=== PATIENT | male | born 1960 | race Caucasian/White ===

== ENCOUNTER 2017-09-23 10:29 | Inpatient (IN) | payer OTHER ==
[~2017-09-23] VITALS: Ht 182.9 cm; Wt 66.0 kg
[2017-09-23 12:09] LABS: BASOPHIL % 0.1 % (0-2); PLATELET COUNT 312 x10^3mcL (130-400); RED CELL DISTRIBUTION WIDTH 13.1 % (11.5-14.5)
[2017-09-23 12:19] LABS: CALCIUM 8.7 mg/dL (8.5-10.1); CARBON DIOXIDE 29.2 mmol/L (21-32); CHLORIDE SERUM 95 mmol/L (98-107); GFR1 > 60 mL/min; GLUCOSE SERUM 112 mg/dL (74-106); POTASSIUM SERUM 3.8 mmol/L (3.5-5.1); SODIUM SERUM 132 mmol/L (136-145)
[2017-09-23 12:23] LABS: ALKALINE PHOSPHATASE 68 U/L (46-116); ALT/SGPT 16 U/L (16-63); AST/SGOT 20 U/L (15-37); BILIRUBIN TOTAL 0.76 mg/dL (0.20-1.00); LIPASE 145 IU/L (73-393); TOTAL PROTEIN, SERUM 7.9 g/dL (6.4-8.2)
[2017-09-23 12:25] LABS: ALBUMIN 2.4 g/dL (3.4-5.0)
[2017-09-23 14:06] VITALS: BP 117/75
[2017-09-23 15:05] VITALS: BP 117/75
[2017-09-23 16:12] LABS: T3 TOTAL 0.51 ng/mL
[2017-09-23 17:27] VITALS: BP 112/70
[2017-09-23 17:48] LABS: FREE T4 1.37 ng/dL (0.76-1.46); FREE THYROXINE INDEX 2.8 ug/dL (1.4-4.5); T4(THYROXINE) 7.2 ug/dL (4.7-13.3)
[2017-09-23 18:15] LABS: MAGNESIUM 2.1 mg/dL (1.8-2.4); PHOSPHOROUS 3.8 mg/dL (2.5-4.9)
[2017-09-23 18:19] LABS: CHOLESTEROL/HDL RATIO 3.8
[2017-09-23 21:21] VITALS: BP 129/74
[2017-09-24 05:26] VITALS: BP 117/68
[2017-09-24 08:11] VITALS: BP 119/73
[2017-09-24 08:19] LABS: BASOPHIL % 0.4 % (0-2); PLATELET COUNT 284 x10^3mcL (130-400); RED CELL DISTRIBUTION WIDTH 12.9 % (11.5-14.5)
[2017-09-24 08:35] LABS: CALCIUM 8.1 mg/dL (8.5-10.1); CARBON DIOXIDE 23.6 mmol/L (21-32); CHLORIDE SERUM 100 mmol/L (98-107); CREATININE SERUM 0.8 mg/dL (0.7-1.3); GFR1 > 60 mL/min; GLUCOSE SERUM 85 mg/dL (74-106); MAGNESIUM 2.1 mg/dL (1.8-2.4); PHOSPHOROUS 3.7 mg/dL (2.5-4.9); POTASSIUM SERUM 3.8 mmol/L (3.5-5.1); SODIUM SERUM 132 mmol/L (136-145)
[2017-09-24 09:10] VITALS: Ht 182.9 cm; Wt 66.0 kg
[2017-09-24 11:35] LABS: microscopic required? NO
[2017-09-24 11:48] LABS: UA SPECIFIC GRAVITY 1.015 (1.005-1.035); urine erythrocyte NEGATIVE (NEGATIVE)
[2017-09-24 12:17] VITALS: BP 128/71
[2017-09-24 16:57] VITALS: BP 122/70
[2017-09-24 21:47] VITALS: BP 121/63
[2017-09-24 23:10] LABS: AMPHETAMINE QUAL UR NONE DETECTED (NEG <=1000)
[2017-09-25 07:18] LABS: BASOPHIL % 0.5 % (0-2); PLATELET COUNT 313 x10^3mcL (130-400); RED CELL DISTRIBUTION WIDTH 13.1 % (11.5-14.5)
[2017-09-25 07:30] LABS: CALCIUM 8.3 mg/dL (8.5-10.1); CARBON DIOXIDE 24.5 mmol/L (21-32); CHLORIDE SERUM 101 mmol/L (98-107); CREATININE SERUM 0.8 mg/dL (0.7-1.3); GFR1 > 60 mL/min; GLUCOSE SERUM 93 mg/dL (74-106); MAGNESIUM 2.2 mg/dL (1.8-2.4); PHOSPHOROUS 3.3 mg/dL (2.5-4.9); POTASSIUM SERUM 4.3 mmol/L (3.5-5.1); SODIUM SERUM 133 mmol/L (136-145)
[2017-09-25 11:06] VITALS: BP 127/76
[2017-09-25 14:11] VITALS: BP 144/63
[2017-09-25 18:33] VITALS: BP 140/71
[2017-09-25 22:00] VITALS: BP 120/67
[2017-09-26 04:09] LABS: BASOPHIL % 0.5 % (0-2); PLATELET COUNT 318 x10^3mcL (130-400); RED CELL DISTRIBUTION WIDTH 12.8 % (11.5-14.5)
[2017-09-26 04:31] LABS: CALCIUM 7.9 mg/dL (8.5-10.1); CARBON DIOXIDE 21.2 mmol/L (21-32); CHLORIDE SERUM 100 mmol/L (98-107); CREATININE SERUM 0.7 mg/dL (0.7-1.3); GFR1 > 60 mL/min; GLUCOSE SERUM 102 mg/dL (74-106); POTASSIUM SERUM 3.8 mmol/L (3.5-5.1); SODIUM SERUM 132 mmol/L (136-145)
[2017-09-26 06:03] VITALS: BP 138/69
[2017-09-26 08:55] VITALS: BP 128/83
[2017-09-26 12:15] VITALS: BP 117/73
[2017-09-26] MEDS ORDERED: XARELTO10 M1 PO (16:41)
[2017-09-26] MEDS ORDERED: GOOD SENSE OMEP20 MG PO (16:44)
[2017-09-26] MEDS ORDERED: DAYTIME-COLD N1 EACH PO (17:02)
[2017-09-26] MEDS ORDERED: COUGH & CHEST177 ML PO (17:06)
[2017-09-26 17:19] VITALS: BP 117/73
== END 2017-09-26 17:52 | disposition home or self-care (01) | DRG 438 ==
LOC: ED 10:29 → DU 12:00
PROVIDERS: Emergency Medicine; Family Medicine; Family Medicine Sports Medicine; Internal Medicine
PROC: 0FBD8ZX Excision of Pancreatic Duct, Via Natural or Artificial Opening Endoscopic, Diagnostic (ICD-10-PCS; principal; 2017-09-25 07:30)
PROC: 0F7D8DZ Dilation of Pancreatic Duct with Intraluminal Device, Via Natural or Artificial Opening Endoscopic (ICD-10-PCS; 2017-09-25 07:30)
DX: K85.90 Acute pancreatitis without necrosis or infection, unspecified (principal); E43 Unspecified severe protein-calorie malnutrition; I82.C12 Acute embolism and thrombosis of left internal jugular vein; I82.B12 Acute embolism and thrombosis of left subclavian vein; I82.A12 Acute embolism and thrombosis of left axillary vein; I82.622 Acute embolism and thrombosis of deep veins of left upper extremity; E87.1 Hypo-osmolality and hyponatremia; J90 Pleural effusion, not elsewhere classified; Z68.1 Body mass index [BMI] 19.9 or less, adult; K22.10 Ulcer of esophagus without bleeding; F10.20 Alcohol dependence, uncomplicated; E87.8 Other disorders of electrolyte and fluid balance, not elsewhere classified; Z23 Encounter for immunization; Y90.9 Presence of alcohol in blood, level not specified; Z53.29 Procedure and treatment not carried out because of patient's decision for other reasons
CPT/HCPCS: 43260; 83880; 84439; C1769; C2617; G0480; J1644; J1885; J2543; J7030; J7620; Q0092; Q9966; Q9967

== ENCOUNTER 2017-09-28 13:41 | Inpatient (IN) | payer OTHER ==
[~2017-09-28] VITALS: Ht 182.9 cm; Wt 66.3 kg
[~2017-09-28 13:41] MED LIST: COUGH & CHEST177 ML PO; DAYTIME-COLD N1 EACH PO; GOOD SENSE OMEP20 MG PO; XARELTO10 M1 PO
[2017-09-28 13:46] VITALS: Ht 182.9 cm; Wt 66.3 kg
[2017-09-28 20:24] LABS: BASOPHIL % 1.2 % (0-2); RED CELL DISTRIBUTION WIDTH 13.1 % (11.5-14.5)
[2017-09-28 20:26] LABS: PLATELET COUNT 404 x10^3mcL (130-400)
[2017-09-28 20:35] LABS: CALCIUM 8.4 mg/dL (8.5-10.1); CARBON DIOXIDE 26.4 mmol/L (21-32); CHLORIDE SERUM 99 mmol/L (98-107); CREATININE SERUM 0.7 mg/dL (0.7-1.3); GFR1 > 60 mL/min; GLUCOSE SERUM 115 mg/dL (74-106); POTASSIUM SERUM 3.7 mmol/L (3.5-5.1); SODIUM SERUM 134 mmol/L (136-145)
[2017-09-28 20:40] LABS: ALKALINE PHOSPHATASE 291 U/L (46-116); ALT/SGPT 50 U/L (16-63); AST/SGOT 32 U/L (15-37); BILIRUBIN TOTAL 0.47 mg/dL (0.20-1.00); TOTAL PROTEIN, SERUM 7.4 g/dL (6.4-8.2)
[2017-09-28 20:41] LABS: ALBUMIN 2.2 g/dL (3.4-5.0)
[2017-09-28 23:47] VITALS: BP 118/72
[2017-09-28 23:49] VITALS: BP 118/72
[2017-09-29 03:30] LABS: MAGNESIUM 2.1 mg/dL (1.8-2.4); PHOSPHOROUS 3.5 mg/dL (2.5-4.9)
[2017-09-29 05:22] VITALS: BP 97/61
[2017-09-29 07:40] VITALS: BP 100/66
[2017-09-29 07:46] LABS: BASOPHIL % 0.4 % (0-2); PLATELET COUNT 363 x10^3mcL (130-400)
[2017-09-29 08:14] LABS: CALCIUM 8.2 mg/dL (8.5-10.1); CARBON DIOXIDE 22.8 mmol/L (21-32); CHLORIDE SERUM 103 mmol/L (98-107); CREATININE SERUM 0.7 mg/dL (0.7-1.3); GFR1 > 60 mL/min; GLUCOSE SERUM 92 mg/dL (74-106); MAGNESIUM 2.1 mg/dL (1.8-2.4); PHOSPHOROUS 3.4 mg/dL (2.5-4.9); POTASSIUM SERUM 3.7 mmol/L (3.5-5.1); SODIUM SERUM 135 mmol/L (136-145)
[2017-09-29 09:23] VITALS: BP 100/66
[2017-09-29 11:11] LABS: microscopic required? NO
[2017-09-29 11:36] LABS: UA SPECIFIC GRAVITY 1.015 (1.005-1.035); urine erythrocyte NEGATIVE (NEGATIVE)
[2017-09-29 11:49] LABS: AMPHETAMINE QUAL UR NONE DETECTED (NEG <=1000)
[2017-09-29 14:15] VITALS: BP 102/64
[2017-09-29 17:41] VITALS: BP 105/66
[2017-09-29 21:21] VITALS: BP 115/80
[2017-09-30 05:31] VITALS: BP 109/60
[2017-09-30 09:45] VITALS: BP 122/77
[2017-09-30 13:35] VITALS: BP 125/76
[2017-09-30 17:40] VITALS: BP 114/78
[2017-09-30 21:22] VITALS: BP 112/69
[2017-10-01 06:10] VITALS: BP 126/75
[2017-10-01 08:55] VITALS: BP 119/72
[2017-10-01] MEDS ORDERED: METAMUCIL0.52 GM PO (11:06)
[2017-10-01] MEDS ORDERED: ANUSOL-HC25 MG/SUPP RC (11:07)
[2017-10-01] MEDS ORDERED: LOTC TOP (11:09)
[2017-10-01 12:53] VITALS: BP 119/72
== END 2017-10-01 14:41 | disposition home or self-care (01) | DRG 393 ==
LOC: ED 13:41 → DU 22:22 → MU 09-30 16:43
PROVIDERS: Emergency Medicine; Internal Medicine Gastroenterology; Student in an Organized Health Care Education/Training Program
PROC: 0DBP8ZZ Excision of Rectum, Via Natural or Artificial Opening Endoscopic (ICD-10-PCS; principal; 2017-09-30 09:45)
DX: K64.8 Other hemorrhoids (principal); E43 Unspecified severe protein-calorie malnutrition; J90 Pleural effusion, not elsewhere classified; J98.11 Atelectasis; E87.1 Hypo-osmolality and hyponatremia; Z68.1 Body mass index [BMI] 19.9 or less, adult; I82.622 Acute embolism and thrombosis of deep veins of left upper extremity; I82.612 Acute embolism and thrombosis of superficial veins of left upper extremity; I82.B12 Acute embolism and thrombosis of left subclavian vein; I82.C12 Acute embolism and thrombosis of left internal jugular vein; T45.515A Adverse effect of anticoagulants, initial encounter; Y92.89 Other specified places as the place of occurrence of the external cause; Z80.9 Family history of malignant neoplasm, unspecified; D64.9 Anemia, unspecified; E83.51 Hypocalcemia
CPT/HCPCS: 45378; 83880; 90658; C9113; G0378; J1200; J1610; J1956; J2250; J2270; J2310; J2405; J3010; J3490; J7030; Q0092; Q0163

== ENCOUNTER 2017-10-31 16:21 | Inpatient (IN) | payer OTHER ==
[~2017-10-31] VITALS: Ht 180.3 cm; Wt 65.9 kg
[~2017-10-31 16:21] MED LIST changes: +ANUSOL-HC25 MG/SUPP RC; +LOTC TOP; +METAMUCIL0.52 GM PO
[2017-10-31 16:34] VITALS: Ht 180.3 cm; Wt 65.9 kg
[2017-10-31 17:23] LABS: UA SPECIFIC GRAVITY >=1.030 (1.005-1.035); microscopic required? YES; urine erythrocyte TRACE (NEGATIVE)
[2017-10-31 17:34] LABS: BASOPHIL % 0.3 % (0-2); PLATELET COUNT 260 x10^3mcL (130-400); RED CELL DISTRIBUTION WIDTH 14.1 % (11.5-14.5)
[2017-10-31 17:56] LABS: T3 TOTAL 0.72 ng/mL
[2017-10-31] MEDS ORDERED: PERCOCET1 TAB PO (18:20)
[2017-10-31 18:34] LABS: CK-MB 0.7 ng/mL (0-3.6); FREE T4 1.17 ng/dL (0.76-1.46); FREE THYROXINE INDEX 2.4 ug/dL (1.4-4.5); T4(THYROXINE) 6.7 ug/dL (4.7-13.3)
[2017-10-31 18:44] LABS: ERYTHROCYTE SED RATE 31 mm/hr (0-20)
[2017-10-31 18:45] LABS: CALCIUM 8.4 mg/dL (8.5-10.1); CARBON DIOXIDE 20.9 mmol/L (21-32)
[2017-10-31 18:59] LABS: BILIRUBIN TOTAL 0.4 mg/dL (0.20-1.00); TOTAL PROTEIN, SERUM 7.4 g/dL (6.4-8.2)
[2017-10-31 19:00] LABS: ALBUMIN 2.3 g/dL (3.4-5.0)
[2017-10-31 19:02] VITALS: BP 133/89
[2017-10-31 19:21] LABS: C REACTIVE PROTEIN 19.4 mg/dL (<=0.9)
[2017-10-31 19:29] LABS: RED BLOOD CELLS 4.1 M/mm3 (4.52-5.90)
[2017-10-31 19:41] LABS: IRON 16 ug/dL (65-170); PHOSPHOROUS 4.8 mg/dL (2.5-4.9); TOTAL IRON BINDING CAPACITY 156 ug/dL (250-450)
[2017-10-31 19:42] LABS: CHOLESTEROL/HDL RATIO 5.9
[2017-10-31 20:22] VITALS: BP 138/95
[2017-10-31 23:23] LABS: AMPHETAMINE QUAL UR NONE DETECTED (NEG <=1000)
[2017-11-01 05:11] VITALS: BP 117/79
[2017-11-01 06:25] LABS: CARBON DIOXIDE 22.6 mmol/L (21-32); CREATININE SERUM 1.8 mg/dL (0.7-1.3); MAGNESIUM 1.8 mg/dL (1.8-2.4); PHOSPHOROUS 4.9 mg/dL (2.5-4.9); POTASSIUM SERUM 3.9 mmol/L (3.5-5.1)
[2017-11-01 07:03] LABS: BASOPHIL % 0.2 % (0-2)
[2017-11-01 07:12] LABS: PLATELET COUNT 182 x10^3mcL (130-400); RED CELL DISTRIBUTION WIDTH 14.1 % (11.5-14.5)
[2017-11-01 10:43] VITALS: BP 124/79
[2017-11-01 14:29] VITALS: BP 128/78
[2017-11-01 17:09] VITALS: BP 118/74
[2017-11-01 21:56] VITALS: BP 128/85
[2017-11-02 06:22] VITALS: BP 114/81
[2017-11-02 06:48] LABS: CALCIUM 8.4 mg/dL (8.5-10.1); CARBON DIOXIDE 20.8 mmol/L (21-32); CREATININE SERUM 1.7 mg/dL (0.7-1.3); MAGNESIUM 1.8 mg/dL (1.8-2.4); PHOSPHOROUS 4.5 mg/dL (2.5-4.9); POTASSIUM SERUM 4.3 mmol/L (3.5-5.1)
[2017-11-02 07:03] LABS: BASOPHIL % 0.3 % (0-2); PLATELET COUNT 224 x10^3mcL (130-400); RED CELL DISTRIBUTION WIDTH 14.2 % (11.5-14.5)
[2017-11-02 09:58] VITALS: BP 135/88
[2017-11-02] MEDS ORDERED: MSC30 PO (10:34)
[2017-11-02] MEDS ORDERED: AUGMENTIN 875-1 EACH PO (10:41)
[2017-11-02] MEDS ORDERED: CULTURELLE10 Billion PO (10:41)
[2017-11-02 13:10] VITALS: BP 135/88
== END 2017-11-02 14:43 | disposition home or self-care (01) | DRG 871 ==
LOC: ED 16:21 → MU 18:26 → DU 18:26 → MU 11-01 16:58
PROVIDERS: Family Medicine; Specialist
DX: A41.9 Sepsis, unspecified organism (principal); N17.0 Acute kidney failure with tubular necrosis; E43 Unspecified severe protein-calorie malnutrition; J69.0 Pneumonitis due to inhalation of food and vomit; Z68.1 Body mass index [BMI] 19.9 or less, adult; C20 Malignant neoplasm of rectum; E87.1 Hypo-osmolality and hyponatremia; R18.8 Other ascites; N13.30 Unspecified hydronephrosis; R65.20 Severe sepsis without septic shock; K74.60 Unspecified cirrhosis of liver; K21.9 Gastro-esophageal reflux disease without esophagitis; E86.0 Dehydration; R80.9 Proteinuria, unspecified; F15.10 Other stimulant abuse, uncomplicated; Z86.718 Personal history of other venous thrombosis and embolism; Z80.9 Family history of malignant neoplasm, unspecified
CPT/HCPCS: 36600; 83880; 84439; G0480; J1940; J2405; J2543; J3010; J7030; J7620; J7626; Q0092